=== PATIENT | male | born 1980 | race Caucasian/White ===

== ENCOUNTER 2023-01-28 14:50 | Emergency (ER) | payer OTHER, SELFPAY ==
[2023-01-28 15:00] VITALS: BP 147/83; PULSE 75; RESP 16; TEMP 36.8; O2SAT 98; BMI 30.7
--- NOTE | 2023-01-28 15:18 | ED.LOWEXI1 ---
Documented by User: Edith Lara 01/28/23 18:25 HPI - Extremity Injury (Lower) General Chief Complaint: Extremity Injury, Lower Stated Complaint: LOWER EXTREMITY INJURY LEFT FOOT Time Seen by Provider: 01/28/23 15:06 Source: patient and family Mode of arrival: walk-in Limitations: physical limitation Limitations comment: L foot History of Present Illness HPI Narrative: 42 year old male presents to the ED for left foot pain s/p injury 01/25/23. He accidentally stepped on a board that had nails sticking out of it. Two nails went into his foot. He was wearing Crocs at the time. He has since developed increased pain and swelling. He had an x-ray today at an urgent care that showed no FB or fracture. He reports limited ROM to his toes, foot due to the pain. His tetanus status was updated at the urgent care. He was sent to the ED for evaluation. Rates his pain 9/10 at this time. Related Data Home Medications Medication Instructions Recorded Confirmed clindamycin HCl 300 mg capsule 300 mg PO Q12H 01/28/23 01/28/23 Previous Rx's Medication Instructions Recorded amoxicillin 875 mg-potassium 1 tab PO Q12H 10 days #20 tabs 01/28/23 clavulanate 125 mg tablet ciprofloxacin HCl 500 mg tablet 500 mg PO BID 10 days #20 tabs 01/28/23 (Cipro) Allergies Allergy/AdvReac Type Severity Reaction Status Date / Time No Known Drug Allergies Allergy Verified 01/28/23 15:00 Review of Systems ROS Constitutional Denies: fever or chills Cardiovascular Denies: chest pain Respiratory Denies: shortness of breath Musculoskeletal Reports: extremity pain and extremity swelling Integumentary/Breast Reports: skin tenderness and skin swelling; Denies: rash or redness PFSH PFSH Social History Smoking status: Former smoker Exam Constitutional Vital Signs, click to edit/add: Last Vital Signs Temp 98.2 F 01/28/23 15:00 Pulse 75 01/28/23 15:00 Resp 16 01/28/23 15:00 BP 147/83 H 01/28/23 15:00 Pulse Ox 98 01/28/23 15:00 O2 Del Method Room Air 01/28/23 15:00 Common normals: no apparent distress and oriented x3 General appearance: cooperative; not ill appearing Neck & C-Spine Common normals: supple Chest Chest: symmetrical chest wall rise Respiratory Common normals: normal respiratory effort Effort & inspection: able to speak in complete sentences and symmetric chest movement Cardio Peripheral pulses: posterior tibial pulses present and dorsalis pedis pulses present Extremity Left lower extremity: foot and digits Left foot and digits: inspection (Swelling left foot. Two puncture wounds noted to ball of foot; no drainage.), palpation (Tenderness to ball of left foot.), ROM (Decreased flexion of foot, decreased ROM to toes of left foot.), neurovascular exam (Distal sensation intact.) and other (Mild erythema to left foot.) Neuro Common normals: oriented x3 Sensorium/orientation: awake and alert Course Vital Signs Vital signs: Vital Signs Temperature 98.2 F 01/28/23 15:00 Pulse Rate 75 01/28/23 15:00 Respiratory Rate 16 01/28/23 15:00 Blood Pressure 147/83 H 01/28/23 15:00 Pulse Oximetry 98 01/28/23 15:00 Oxygen Delivery Method Room Air 01/28/23 15:00 Temperature 98.2 F 01/28/23 15:00 Pulse Rate 75 01/28/23 15:00 Respiratory Rate 16 01/28/23 15:00 Blood Pressure 147/83 H 01/28/23 15:00 Pulse Oximetry 98 01/28/23 15:00 Oxygen Delivery Method Room Air 01/28/23 15:00 MDM - Extremity Injury (Lower) MDM Narrative Medical decision making narrative: The patient reported he had an unremarkable x-ray at urgent care today with no evidence of fracture or FB. WBC count was 10.6 here in the ED today. He was given a dose of IV antibiotics here in the ED. Dr. Landa spoke with Dr. Sarkar. The patient is to follow up with Dr. Sarkar tomorrow morning; he was advised to call at 8am for an appointment time. He is to be NPO after midnight tonight in the event he has a procedure tomorrow. He was advised to stop the clindamycin at the recommendation of Dr. Sarkar. Prescriptions were provided for Augmentin and Cipro. A bulky dressing and post-op shoe were applied. The application was checked and was appropriate; the LLE remained NVI. He declined crutches as he has a pair. He is aware he is to be nonweightbearing with the LLE. Return precautions were discussed. Lab Data Attestation: I reviewed the patient's lab results. Discharge Plan Discharge Chief Complaint: Extremity Injury, Lower Clinical Impression: Puncture wound, Injury of foot, left Patient Disposition: Home, Self-Care Time of Disposition Decision: 17:30 Condition: Good Mode of Transportation: Private Vehicle Prescriptions / Home Meds: New ciprofloxacin HCl [Cipro] 500 mg tablet 500 mg PO BID 10 Days Qty: 20 0RF amoxicillin-pot clavulanate 875-125 mg tablet 1 tab PO Q12H 10 Days Qty: 20 0RF No Action clindamycin HCl 300 mg capsule 300 mg PO Q12H Instructions: Crutch Instructions (ED), Cellulitis (ED) Additional Instructions: Do not eat or drink anything after midnight; they may schedule you for a procedure tomorrow. Call Dr. Sarkar's office at 8 am tomorrow morning for an appointment time. Do not bear weight on the left leg; use the crutches as indicated. Stop taking the Clindamycin; start taking the Cipro and Augmentin as directed. Stand Alone Forms: Portal Instructions Referrals: Bridger Baptiste MD [Primary Care Provider] - 1 week Ran Sarkar DPM [Physician] - 01/29/23 (Call the office at 8am for follow up) Discharge Date/Time: 01/28/23 18:02 Documented by User: Yokasta Landa MD 01/28/23 18:51 HPI - Extremity Injury (Lower) General Chief Complaint: Extremity Injury, Lower Stated Complaint: LOWER EXTREMITY INJURY LEFT FOOT Time Seen by Provider: 01/28/23 15:06 Related Data Home Medications Medication Instructions Recorded Confirmed clindamycin HCl 300 mg capsule 300 mg PO Q12H 01/28/23 01/28/23 Previous Rx's Medication Instructions Recorded amoxicillin 875 mg-potassium 1 tab PO Q12H 10 days #20 tabs 01/28/23 clavulanate 125 mg tablet ciprofloxacin HCl 500 mg tablet 500 mg PO BID 10 days #20 tabs 01/28/23 (Cipro) Allergies Allergy/AdvReac Type Severity Reaction Status Date / Time No Known Drug Allergies Allergy Verified 01/28/23 15:00 [facility] Social History Smoking status: Former smoker Exam Constitutional Vital Signs, click to edit/add: Last Vital Signs Temp 98.2 F 01/28/23 15:00 Pulse 75 01/28/23 15:00 Resp 16 01/28/23 15:00 BP 147/83 H 01/28/23 15:00 Pulse Ox 98 01/28/23 15:00 O2 Del Method Room Air 01/28/23 15:00 Course Vital Signs Vital signs: Vital Signs Temperature 98.2 F 01/28/23 15:00 Pulse Rate 75 01/28/23 15:00 Respiratory Rate 16 01/28/23 15:00 Blood Pressure 147/83 H 01/28/23 15:00 Pulse Oximetry 98 01/28/23 15:00 Oxygen Delivery Method Room Air 01/28/23 15:00 Temperature 98.2 F 01/28/23 15:00 Pulse Rate 75 01/28/23 15:00 Respiratory Rate 16 01/28/23 15:00 Blood Pressure 147/83 H 01/28/23 15:00 Pulse Oximetry 98 01/28/23 15:00 Oxygen Delivery Method Room Air 01/28/23 15:00 MDM - Extremity Injury (Lower) MDM Narrative Medical decision making narrative: The patient reported he had an unremarkable x-ray at urgent care today with no evidence of fracture or FB. WBC count was 10.6 here in the ED today. He was given a dose of IV antibiotics here in the ED. Dr. Landa spoke with Dr. Sarkar. The patient is to follow up with Dr. Sarkar tomorrow morning; he was advised to call at 8am for an appointment time. He is to be NPO after midnight tonight in the event he has a procedure tomorrow. He was advised to stop the clindamycin at the recommendation of Dr. Sarkar. Prescriptions were provided for Augmentin and Cipro. A bulky dressing and post-op shoe were applied. The application was checked and was appropriate; the LLE remained NVI. He declined crutches as he has a pair. He is aware he is to be nonweightbearing with the LLE. Return precautions were discussed. Attending physician attestation I have reviewed the mid-level documentation, agree with the documentation, medical decision making and treatment plan as outlined by the mid-level provider. Discharge Plan Discharge Chief Complaint: Extremity Injury, Lower Clinical Impression: Puncture wound, Injury of foot, left Patient Disposition: Home, Self-Care Time of Disposition Decision: 17:30 Condition: Good Mode of Transportation: Private Vehicle Prescriptions / Home Meds: New ciprofloxacin HCl [Cipro] 500 mg tablet 500 mg PO BID 10 Days Qty: 20 0RF amoxicillin-pot clavulanate 875-125 mg tablet 1 tab PO Q12H 10 Days Qty: 20 0RF No Action clindamycin HCl 300 mg capsule 300 mg PO Q12H Instructions: Crutch Instructions (ED), Cellulitis (ED) Additional Instructions: Do not eat or drink anything after midnight; they may schedule you for a procedure tomorrow. Call Dr. Sarkar's office at 8 am tomorrow morning for an appointment time. Do not bear weight on the left leg; use the crutches as indicated. Stop taking the Clindamycin; start taking the Cipro and Augmentin as directed. Stand Alone Forms: Portal Instructions Referrals: Bridger Baptiste MD [Primary Care Provider] - 1 week Ran Sarkar DPM [Physician] - 01/29/23 (Call the office at 8am for follow up) Discharge Date/Time: 01/28/23 18:02
[2023-01-28 15:47] LABS: Basophils Absolute Auto 0.1 10^3/uL (0.0-0.1); Basophils Percent Auto 0.7 % (0.2-2.0); Eosinophils Absolute Auto 0.2 10^3/uL (0.0-0.7); Eosinophils Percent Auto 1.8 % (0.9-7.0); Hematocrit 41.4 % (42.0-54.0); Hemoglobin 14.1 g/dL (14.0-18.0); Immature Granulocytes Abs Auto 0.04 10^3/uL (0.00-0.03); Immature Granulocytes Pct Auto 0.4 % (0.0-0.5); Lymphocytes Percent Auto 19.1 % (20.5-60.0); Mean Corpuscular HGB Conc 34.1 g/dL (29.9-35.2); Mean Corpuscular Hemoglobin 31.3 pg (25.9-34.0); Mean Corpuscular Volume 91.8 fL (80.0-94.0); Mean Platelet Volume 9.9 fL (9.5-13.5); Monocytes Absolute Auto 0.7 10^3/uL (0.3-0.8); Monocytes Percent Auto 6.9 % (1.7-12.0); Neutrophils Absolute Auto 7.6 10^3/uL (1.4-6.5); Neutrophils Percent Auto 71.1 % (43.0-75.0); Platelet Count 218 10^3/uL (150-450); Red Blood Count 4.51 10^6/uL (4.70-6.10); Red Cell Distribution Width 12.8 % (11.0-15.0); White Blood Count 10.6 10^3/uL (4.0-11.0)
[2023-01-28 15:55] LABS: Anion Gap 11.1; BUN Creatinine Ratio 12.6; Calcium 8.4 mg/dL (8.5-10.1); Carbon Dioxide 30.6 mmol/L (21.0-32.0); Chloride 104 mmol/L (98-107); Estimated GFR (African America >60 (>=60); Estimated GFR (Non-African Ame >60 (>=60); Glucose 130 mg/dL (74-106); Potassium 3.7 mmol/L (3.5-5.1); Sodium 142 mmol/L (136-145)
[2023-01-28] MEDS: PIPERACILLIN SODIUM/TAZOBACTAM 4.5 GM in 0.9 % SODIUM CHLORIDE 50 ML IV (17:23)
[2023-01-28 17:28] LABS: Erythrocyte Sedimentation Rate 10 mm/hr (<=15)
[2023-01-28 17:33] VITALS: BP 150/71; PULSE 60; RESP 18; O2SAT 99
[2023-01-28 18:00] VITALS: BP 123/77; PULSE 63; RESP 16; O2SAT 99
== END 2023-01-28 18:02 | disposition home or self-care (01) ==
PROVIDERS: Nurse Practitioner Family; Emergency Provider Emergency Medicine; PCP Family Medicine
DX: S91.332A Puncture wound without foreign body, left foot, initial encounter (principal); W45.0XXA Nail entering through skin, initial encounter; Z87.891 Personal history of nicotine dependence
CPT/HCPCS: 36415; 80048; 85025; 85652; 86140; 96365; 99284

== ENCOUNTER 2023-01-29 10:02 | Outpatient (OUT) | payer OTHER, SELFPAY ==
--- NOTE | 2023-01-29 | XR_ITS ---
The [address] [address] Patient Name: BART EVERETT MRN: [id number] date: 1980 Sex: M Assigned Patient Location: Current Patient Location: Accession/Order Number: [id number] Exam Date: 01/29/2023 10:45 Report Date: 01/29/2023 16:14 At the request of: EULALIO LEWIS Procedure: XR foot LT min 3V PROCEDURE: XR foot LT min 3V HISTORY: LEFT FOOT PAIN , wound, stepped on nail COMPARISON: None. FINDINGS: BONES:No fracture, acute abnormality, or significant arthropathy. SOFT TISSUES:No visible soft tissue swelling. EFFUSION:None visible. OTHER: Negative. XR/XR foot LT min 3V IMPRESSION: 1. No radiopaque foreign body or appreciable bone involvement. Electronically authenticated by: HE HERNANDEZ Date: 01/29/2023 16:14
== END 2023-01-29 10:03 | disposition home or self-care (01) ==
LOC: WC 10:02
PROVIDERS: PCP Family Medicine; Visit Provider Podiatrist Foot & Ankle Surgery
DX: S91.302A Unspecified open wound, left foot, initial encounter (principal); S91.309A Unspecified open wound, unspecified foot, initial encounter
CPT/HCPCS: 73630; G0463

== ENCOUNTER 2023-02-05 08:50 | Outpatient (OUT) | payer OTHER, SELFPAY | END 2023-02-05 08:51 | disposition home or self-care (01) | LOC: WC 08:50 | PROVIDERS: PCP Family Medicine; Visit Provider Podiatrist Foot & Ankle Surgery | DX: S91.309A Unspecified open wound, unspecified foot, initial encounter (principal) | CPT/HCPCS: 97597 ==

== ENCOUNTER 2023-02-19 13:22 | Outpatient (OUT) | payer OTHER, SELFPAY | END 2023-02-19 13:23 | disposition home or self-care (01) | LOC: WC 13:22 | PROVIDERS: PCP Family Medicine; Visit Provider Podiatrist Foot & Ankle Surgery | DX: S91.309A Unspecified open wound, unspecified foot, initial encounter (principal) | CPT/HCPCS: G0463 ==

== ENCOUNTER 2023-09-09 13:21 | Outpatient (OUT) | payer OTHER, SELFPAY ==
--- NOTE | 2023-09-09 13:24 | XR_ITS ---
The [address] [address] Patient Name: BART EVERETT MRN: [id number] date: 1980 Sex: M Assigned Patient Location: [facility] Current Patient Location: Accession/Order Number: [id number] Exam Date: 09/09/2023 13:32 Report Date: 09/10/2023 07:39 At the request of: LES FULLER Procedure: XR lumbar spine 2-3V EXAMINATION: XR lumbar spine 2-3V HISTORY: Lumbar Radiculopathy M54.16 COMPARISON: No relevant comparison available. FINDINGS: BONES: Normal alignment with no acute fracture or spondylolisthesis. Mild degenerative spondylosis. Mild facet osteoarthropathy DISC SPACES: Moderate narrowing with endplate sclerosis and vacuum disc L5-S1 PARASPINOUS: Negative. No paraspinous abnormality is seen. OTHER: Atherosclerosis XR/XR lumbar spine 2-3V IMPRESSION: Moderate degenerative changes L5-S1 Electronically authenticated by: ILEANA MANZO Date: 09/10/2023 07:39
== END 2023-09-09 13:22 | disposition home or self-care (01) ==
LOC: RAD 13:21
PROVIDERS: PCP Family Medicine; Visit Provider Family Medicine
DX: M54.16 Radiculopathy, lumbar region (principal)
CPT/HCPCS: 72100

== ENCOUNTER 2023-09-24 15:27 | Outpatient (OUT) | payer OTHER, SELFPAY ==
--- NOTE | 2023-09-24 | MR_ITS ---
[address] [address] Patient Name: BART EVERETT MRN: [id number] date: 1980 Sex: M Assigned Patient Location: [facility] Current Patient Location: Accession/Order Number: [id number] Exam Date: 09/24/2023 15:45 Report Date: 09/25/2023 07:13 At the request of: LES FULLER Procedure: MR lumbar spine wo con EXAMINATION: MR lumbar spine wo con HISTORY: lumbar radiculopathy COMPARISON: No relevant comparison available. TECHNIQUE: A variety of imaging planes and parameters were utilized for visualization of suspected pathology. FINDINGS: For the purposes of numbering, sagittal T2 image # 7 extends from the T11 vertebral body superiorly to the S2 level inferiorly. PARASPINAL AREA: Normal with no visible mass. BONES: Normal alignment of the lumbar vertebral bodies with no acute fracture or spondylolisthesis. No bone edema. CORD/CAUDA EQUINA: Normal caliber, contour, and signal intensity. DISC LEVELS: 12-L1: No significant disc/facet abnormality, spinal stenosis, or foraminal stenosis. L1-L2: Moderate disc space narrowing and disc desiccation. Minimal posterior disc bulge. No central or foraminal stenosis L2-L3: No significant disc/facet abnormality, spinal stenosis, or foraminal stenosis. L3-L4: No significant disc/facet abnormality, spinal stenosis, or foraminal stenosis. L4-L5: Mild disc space narrowing and disc desiccation. Right base posterior disc herniation the protrusion type extending up to 3.5 mm. This abuts but does not efface the nerves. No central or foraminal stenosis L5-S1: Moderate to severe disc space narrowing and disc desiccation. Posterior central disc/osteophyte complex. No central or foraminal stenosis MR/MR lumbar spine wo con IMPRESSION: Small posterior disc herniation of protrusion type at L4-L5 abutting but not effacing the adjacent nerves Electronically authenticated by: ILEANA MANZO Date: 09/25/2023 07:13
--- NOTE | 2023-09-24 15:34 | XR_ITS ---
The [address] [address] Patient Name: BART EVERETT MRN: [id number] date: 1980 Sex: M Assigned Patient Location: [facility] Current Patient Location: [facility] Accession/Order Number: [id number] Exam Date: 09/24/2023 15:35 Report Date: 09/24/2023 16:04 At the request of: LES FULLER Procedure: XR foreign body eye EXAM: XR foreign body eye HISTORY: foreign body for mri COMPARISON: None. TECHNIQUE: Young' view, lateral x-ray orbits. FINDINGS: No opaque orbital foreign body seen. Sinuses clear. Asymmetric soft tissue density along the inferior right orbital floor. No adjacent bony abnormality. No bony abnormality elsewhere. XR/XR foreign body eye IMPRESSION: Negative for orbital foreign body. Electronically authenticated by: SYDNIE KEBEDE Date: 09/24/2023 16:04
== END 2023-09-24 15:28 | disposition home or self-care (01) ==
LOC: RAD 15:28
PROVIDERS: PCP Family Medicine; Visit Provider Family Medicine
DX: M54.16 Radiculopathy, lumbar region (principal); M51.26 Other intervertebral disc displacement, lumbar region
CPT/HCPCS: 70030; 72148

== ENCOUNTER 2025-06-04 07:26 | Outpatient (OUT) | payer OTHER, SELFPAY ==
--- OUTSIDE RECORDS SUMMARY | 2025-05-31 12:00 | XMS_ITS ---
Author Organization The [facility] [place] Address [address] [address] Care Team Providers Care Robot Programmer Name Role Phone BABATUNDE BAPTISTE MD Primary Care Provider Babatunde Baptiste Unavailable [phone] Allergies No Known Allergies REASON FOR VISIT prostate exam, patient would like to discuss viagra Medications Medication SIG (Take, Route, Frequency, Duration) Notes Start Date End Date Status Diclofenac Sodium 75 MG 1 tablet as needed Orall y Twice a day 09/09/2023ctiveTadalafil 20 MG1 tablet as needed Orally Q 3 days max05/31/2025 Active Social History Tobacco Use: Social History Observation Description Date Details (start date - stop date) Former Smoker 06/17/1995 - 06/17/2022 Tobacco Use/Smoking Question Answer Notes Patient is a former smoker When did you start smoking?06/17/1995When did you stop smoking?06/17/2022How long has it been since you last smoked?1-5 yearsAdditional Findings: Tobacco Zzz-WcrdBs-iupqgims cigarette smoker (10-19/day)AUDIT-C (Standard) Question Answer Notes Did you have a drink containing alcohol in the p ast year? Yes How often did you have a drink containing alcohol in the past year?Monthly or less (1 point)How many drinks did you have on a typical day when you were drinking in the past year?1 or 2 drinks (0 point)How often did you have six or more drinks on one occasion in the past year?4 or more times a week (4 points) Loyrsq2OhzsztvbqcpfjvNljntsgr Problems Problem Type SNOMED Code ICD Code Onset Dates Problem Status W/U Status Risk Notes Problem Well adult (676522473) Well adult (Z00.00 ) Activeconfirmed Vital Signs Weight 220 lbs 05/31/2025 Height 71 in 05/31/2025 Blood pressure systolic 128 mm Hg 05/31/20 25 Blood pressure diastolic 78 mm Hg 025 BMI 30.68 kg/m2 05/31/2025 Encounters Encounter Location Date Provider Diagnosis [facility] [address] [place] [address] 05/31/2025 Babatunde Baptiste Well adult Z00.00 an d Tennis elbow M77.10 Assessments Encounter Date Diagnosis (ICD Code) Assessment Notes Treatment Notes Treatment Clinical Notes Section Notes 05/31/2025 Well adult (ICD-10 - Z00.00) 05/31/2025Tennis elbow (ICD-10 - M77.10) Plan Of Treatment Medication Medication Name Sig Start Date Stop Date Notes Tadalafil 20 MG 1 tablet as needed Orally Q 3 days max 05/31/2025 Pending Test Test Name Order Date HEMOGLOBIN A1C (GLYCO) 05/31/2025 INSULIN, TOTAL 05/31/2025 LIPID PANEL (CHOL/TRIG/HDL/LDL) 05/31/20 25 STOOL OCCULT BLOOD 05/31/2025 THYROID PANEL (T4/TSH/FREE T3) PSA, SCREENING 05/31/2025 CMP (COMP MET NOGUERA) w/eGFR CKD-EPI 2024 CBC WITH DIFF 05/31/2025 Progress Notes * Erick GEE RDOB:1980 (44 yo M)Acc No.[id number]:05/31/2025 Progress Note Patient: Erick LOCKWOOD :?Bridger Baptiste ([facility]), MDDOB:1980???Age: 44 Y???Sex:MaleDate:05/31/2025Phone:[phone]:[address] [place], [place] [id number]:Maria Teresa NUNES In:04:24 PM ESTCheck Out:05:52 PM EST Subjective: * Chief Complaints: * P rostate examPatient would like to discuss viagra * ROS: ???EENT:?hearing changes?denies.?visual changes?denies. non-healing mouth sores?denies.?swollen glands or neck lumps?denies.?hoarseness?denies.?sore throat?denies.?difficulty swallowing?denies.?nose bleeds?denies.?nasal congestion?denies.?ear ache?denies.?ear discharge denies.?ringing in ears?denies.?light sensitivity?denies.?eye pain?denies.?blurring?denies.?eye irritation?denies.?double vision?denies. vision loss?denies.?General/Constitutional:?Sweats:?Denies.?Fatigue?denies.?Sleep proble ms?denies.?Anorexia?denies.?Malaise?denies.?Weight loss?denies. Fatigue or Weakness?denies.?Fever or Chills?denies.?Cardiovascular:?Shortness of Breath w/lying flat?denies.?Lightheadedne ss/dizziness?denies.?Chest tightness/ heavy pressure?denies.?Swelling of legs, a nkles, or feet?denies.?Waking up with shortness of breath?denies.?Chest pain&#16 0;denies.?Palpitations?denies.?Weight gain?denies.?Respiratory:?Chronic or frequent cough?denies.?Coughing up blood&#1 60;denies.?Difficulty breathing?denies.?Productive cough?denies.?Snoring&#1 60;denies.?Shortness of breath that awakens from sleep (PND)?denies.?Chest pain? denies.?Sputum production?denies.?Wheezing?denies.?Musculoskeletal:?Joint pain?denies.?Joint Fluid?denies.?Backpain?denies.?Knee pain?denies.?Neck pain?denies.?Joint Stiffness?denies.?Muscle cramps?denies.?Weakness of muscles?denies.?Arthritis?denies.?Muscle aches?denies.?Pain in shoulder(s)?denies.?Swollen joints?denies.? * Active Problem List N52.9 Impotence Modified On:09/09/2023/U Status:ojaovihhwU68.309AOpen wound of foot Modified On:03/15/2023/U Status:tthjlfyrxT81.90Cellulitis Modified On:08/22/2023/U Status:pseimzatkF17.16Lumbar radiculopathy Modified On:09/26/2023/U Status:sxidkjolvV73.816Spondylosis without myelopathy or radiculopathy, lumbar region Modified On:09/10/2023/U Status:hhewpnhwvG58.00Well adult Modified On:05/31/2025U Status:confirmed * Medical History: * Surgical History: A PPENDECTOMY TONSILLECTOMY,UNDER 12YRS ADENOIDECTOMY,UNDER 12YRS Right Foot- toe surgery * Hospitalization/Major Diagno stic Procedure: s ee above * Family History: F ather: . M other: . B gaby(s): . S on(s): alive, Stomach issues. 1 brother(s) . 2 son(s) - healthy. . * Social History: ???Tobacco Use:?Tobacco Use/Smoking?Patient is a?former smoker ?When did you start smoking??06/17/1995 ?When did you stop smoking??06/17/2022 ?How long has it been since you last smoked? 1-5 years ?Additional Findings: Tobacco Non-User?Ex-moderate cigarette smoker (10-19/day) ???Drug/Alcohol:?AUDIT-C (Standard)?Did you have a drink containing alcohol in the past year??Yes ?How often did you have a drink containing alcohol in the past year?? Monthly or less (1 point) ?How many drinks did you have on a typical daywhen you were drinking in the past year??1 or 2 drinks (0 point) ?How often did you have six or more drinks on one occasion in the past year??4 or more times a week (4 points) ?Points?5 ?Interpretation?Positive * Medications: T akingDiclofenac Sodium 75 MG Tablet Delayed Release 1 tablet as needed Orally Twice a day Medication List reviewed and reconciled with the patientTaking Diclofenac Sodium 75 MG Tablet Delayed Release 1 tablet as needed Orally Twice a day Medication List reviewed and reconciled with the patient * Allergies: N .K.D.A.no[Allergies Verified] Objective: * Vitals: W t:220lbs, Ht: 71 in, BP:128/78mm Hg, BMI:30.68Index, Ht-cm: 180.34 cm, Wt-k.79 kg. * Examination: ???Physical Exam: ?GENERAL:?well developed, well nourished, in no acute distress.?HEAD:?normocephalic/atraumatic.?EYES:?pupils equal, round and reactive to light, conjunctivae and sclerae normal.?EARS:?no deformity or lesion of external ear, canals and TM appear normal bilaterally, TM's intact, not inflamed with normal light reflex, hearing grossly normal to conversational speech.?NOSE:?no deformity, discharge, inflammation, or lesions. ?MOUTH:?mucous membranes moist, normal oropharynx and posterior pharynx without lesions or exudates, tongue normal, dentition normal.?NECK:?neck supple, no masses or palpable cervical nodes, trachea midline, thyroid without nodules, masses, tenderness, or enlargement.?CHEST:?no chest wall deformity, no chest wall tenderness. ?LUNGS:?normal respiratory effort and clear to auscultation, no wheezes, rales, or rhonchi, good air exchange.?CARDIO:?regular rate and rhythm, normal S1 and S2, nor murmur, rub, or gallop.?PULSES:?normal capillary refill.?ABDOMEN:?soft, non-distended, non-tender, no masses.?MUSCULOSKELETAL:?no deformity or scoliosis noted, normal range of motion, joints normal, no erythema, edema, effusion, or ecchymosis.?EXTREMITY:?no clubbing, cyanosis, edema, or deformity withnormal ROM in both upper and lower bilateral extremities.?NEUROLOGIC:?grossly normal.?SKIN:?no rashes, ulcerations, or suspicious lesions.?LYMPH NODES:?no cervical adenopathy, nodes normal.?MENTAL STATUS:?alert and oriented x3, normal mood and affect.? Assessment: * Assessment: 1.?Well adult - Z00.00 (Primary)???2.?Tennis elbow - M77.10?? Plan: * Treatment: Start Tadalafil Tablet, 20 MG, 1 tablet as needed, Orally, Q 3 days max, 10, Refills 11.?LAB: HEMOGLOBIN A1C (GLYCO) ?LAB: INSULIN, TOTAL ?LAB: LIPID PANEL (CHOL/TRIG/HDL/LDL) ?LAB: STOOL OCCULT BLOOD ?LAB: THYROID PANEL (T4/TSH/FREE T3) ?LAB: PSA, SCREENING ?LAB: CMP (COMP MET NOGUERA) w/eGFR CKD-EPI ?LAB: CBC WITH DIFF * Procedure Codes: * Preventive Medicine: ??Screenings/Counseling:?BMI ACTION PLAN?Above Normal BMI Follow-up?Dietary management education, guidance, and counseling * * Sign off status: CompletedVisit Status:?CHK (Check Out) true * Provider: Migdalia [facility])MD Date: 1 08/01/2024 Generated for Printing/Faxing/eTransmitting on:?06/04/2025 07:29 AM EST History and Physical Notes * Examination CategorySub-CategoryDetailNotesCategory NotesPhysical ExamGENERAL:well developed, well nourished, in no acute distressHEAD:normocephalic/atraumatic EYES:pupils equal, round and reactive to light, conjunctivae and sclerae normal EARS:no deformity or lesion of external ear, canals and TM appear normal bilaterally, TM's intact, not inflamed with normal light reflex, hearing grossly normal to conversational speechNOSE:no deformity, discharge, inflammation, or lesionsMOUTH:mucous membranes moist, normal oropharynx and posterior pharynx without lesions or exudates, tonguenormal, dentition normalNECK:neck supple, no masses or palpable cervical nodes, trachea midline, thyroid without nodules, masses, tenderness, or enlargementCHEST:no chest wall deformity, no chest wall tendernessLUNGS:normal respiratory effort and clear to auscultation, no wheezes, rales, or rhonchi, good air exchangeCARDIO:regular rate and rhythm, normal S1 and S2, nor murmur, rub, or gallopPULSES:normal capillary refillABDOMEN:soft, non-distended, non-tender, no massesRECTAL:MUSCULOSKELETAL:no deformity or scoliosis noted, normal range of motion, joints normal, no erythema, edema, effusion, or ecchymosisEXTREMITY:no clubbing, cyanosis, edema, or deformity with normal ROM in both upper and lower bilateral extremitiesNEUROLOGIC:grossly normalSKIN:no rashes, ulcerations, or suspicious lesionsLYMPH NODES:no cervical adenopathy, nodes normalMENTAL STATUS:alert and oriented x3, normal mood and affect
--- OUTSIDE RECORDS SUMMARY | 2025-06-04 07:29 | XMS_ITS | Patient Health Record ---
Author Organization The [facility] in [place] Address [address] [place] [address] Care Team Providers Care Family Health Nurse Practitioner Name Role Phone BABATUNDE BAPTISTE MD Primary Care Provider Babatunde Baptiste Unavailable [phone] Allergies No Known Allergies Reason For Referral No Information Medications Medication SIG (Take, Route, Frequency, Duration) [...] since you last smoked?1-5 yearsAdditional Findings: Tobacco Bpb-JwbfPm-qyogvyzv cigarette smoker (10-19/day)AUDIT-C (Standard) Question Answer Notes [...] or more times a week (4 points) Tpfoso3ExrrozahysamaoBeaubktq Problems Problem Type SNOMED Code ICD Code Onset Dates Problem Status W/U Status Risk Notes Problem Lumbosacral spondylo sis without myelopathy (50319048) Spondylosis without myelopathy or radiculopathy, lumbar region (M47.816) ActiveconfirmedProblemLumbar radiculopathy (593859425)Lumbar radiculopathy (M54.16)ActiveconfirmedProblemWell adult (952638154)Well adult (Z00.00)Active confirmedProblemCellulitis (382355749)Cellulitis (L03.90)ActiveconfirmedProblem Erectile dysfunction (disorder) (212539617)Impotence (N52.9)Activeconfirmed ProblemOpen wound of foot (638529379)Open wound of foot (S91.309A)Active confirmed Vital Signs Blood pressure diastolic 78 mm Hg 05/31/2025 Xelgut73 in05/31/2025lood pressure hhlulnfs342 mm Hg05/31/20252260Ewnyqw134 lbs 05/31/2025BMI30.68 kg/m205/31/2025 Encounters Encounter Location Date Provider Diagnosis [facility] [address] [place] [address] 05/31/2025 Babatunde Baptiste Well adult Z00.00 an d Tennis elbow M77.10 Assessments Encounter Date Diagnosis (ICD Code) Assessment Notes Treatment Notes Treatment Clinical Notes Section Notes 05/31/2025 Well adult (ICD-10 - Z00.00) 05/31/2025Tennis elbow (ICD-10 - M77.10) Plan Of Treatment Pending Test Test Name Order Date HEMOGLOBIN A1C (GLYCO) 05/31/2025 INSULIN, TOTAL 05/31/2025 LIPID PANEL (CHOL/TRIG/HDL/LDL) 05/31/20 25 STOOL OCCULT BLOOD 05/31/2025 MRI LSPINE WO CON 09/09/2023 XR LSPINE 2_3 VIEWS 09/09/2023 THYROID PANEL (T4/TSH/FREE T3) PSA, SCREENING 05/31/2025 CMP (COMP MET NOGUERA) w/eGFR CKD-EPI 2024 CBC WITH DIFF 05/31/2025 Insurance Providers Payer Name Payer Address Payer Phone Subscriber Number Group Number Insured Name Patient Relationship to Insured Coverage Start Date Coverage End Date [employer] [address] [address] [place] [address] [id number] Gemma Geeelf - patient is the insured Medications Administered Medication Instructions Date of Administration Dosage Notes Kenalog-40 je295Agkfqwh-8816/26/2024120 mgKetorolac Tynfbgenrfnz33/25/202460 bf72Hfadbmmya Blbkmejpajwa56/26/202460 mgOrphenadrine Bqjegrt04 mg60 Orphenadrine Esqzsbo46 mg Medical (General) History Medical History History ICD Code Breast buds E30.1 COVID-19 U07.1 De Quervain's syndrome (tenosynovitis) M 65.4 Depression F32.A Insomnia G47.00 Impotence N52.9 Surgical History Surgery Date(Month/Year) APPENDECTOMY TONSILLECTOMY,UNDER 12YRSADENOIDECTOMY,UNDER 12YRSRight Foot- toe surgery Hospitalization History Reason Date(Month/Year) see above
[2025-06-04 07:49] LABS: Hematocrit 42.1 % (42.0-54.0); Hemoglobin 14.4 g/dL (14.0-18.0); Immature Granulocytes Abs Auto 0.03 10^3/uL (0.00-0.03); Immature Granulocytes Pct Auto 0.4 % (0.0-0.5); Lymphocytes Absolute Auto 2.8 10^3/uL (1.2-3.8); Mean Corpuscular HGB Conc 34.2 g/dL (29.9-35.2); Mean Corpuscular Hemoglobin 31.3 pg (25.9-34.0); Mean Corpuscular Volume 91.5 fL (80.0-94.0); Platelet Count 227 10^3/uL (150-450); Red Blood Count 4.60 10^6/uL (4.70-6.10); White Blood Count 8.5 10^3/uL (4.0-11.0)
[2025-06-04 09:20] LABS: Alanine Aminotransferase 39 U/L (16-63); Albumin Globulin Ratio 1.4; Albumin Level 4.2 g/dL (3.4-5.0); Alkaline Phosphatase 63 U/L (46-116); Anion Gap 12.5; Aspartate Amino Transferase 25 U/L (15-37); Blood Urea Nitrogen 12.0 mg/dL (7.0-18.0); Calcium 8.6 mg/dL (8.5-10.1); Carbon Dioxide 29.0 mmol/L (21.0-32.0); Chloride 103 mmol/L (98-107); Cholesterol 177 mg/dL (<=200); Estimated GFR (African America >60 (>=60 mL/min/1.73m^2); Estimated GFR (Non-African Ame >60 (>=60 mL/min/1.73m^2); Free T3 3.14 pg/mL (2.18-3.98); Globulin 2.9 g/dL; Glucose 92 mg/dL (74-106); HDL Cholesterol 59 mg/dL (40-60); Potassium 3.5 mmol/L (3.5-5.1); Sodium 141 mmol/L (136-145); Thyroid Stimulating Hormone 0.943 uIU/mL (0.358-3.740); Total Protein 7.1 g/dL (6.4-8.2); Triglycerides 32 mg/dL (<=150); VLDL CHOLESTEROL 6.4 mg/dL
== END 2025-06-04 07:27 | disposition home or self-care (01) ==
LOC: LAB 07:27
PROVIDERS: PCP Family Medicine; Visit Provider Family Medicine
DX: Z00.00 Encounter for general adult medical examination without abnormal findings (principal); Z12.5 Encounter for screening for malignant neoplasm of prostate
CPT/HCPCS: 36415; 80053; 80061; 83036; 83525; 84436; 84443; 84481; 85025; G0103

== ENCOUNTER 2025-06-05 11:23 | Outpatient (REF) | payer OTHER, SELFPAY ==
--- OUTSIDE RECORDS SUMMARY | 2025-05-31 12:00 | XMS_ITS ---
Author Organization The [facility] in [place] Address [address] [place] [address] Care Team Providers Care Mgmt Specialist Name Role Phone BABATUNDE BAPTISTE MD Primary Care Provider Babatunde Baptiste Unavailable [phone] Allergies No Known Allergies REASON FOR VISIT [...] since you last smoked?1-5 yearsAdditional Findings: Tobacco Qyv-NhvnXs-zcxjsmte cigarette smoker (10-19/day)AUDIT-C (Standard) Question Answer Notes [...] or more times a week (4 points) Bpakyv3DwrszaysnulamrBdawfjwq Problems Problem Type SNOMED Code ICD Code Onset Dates Problem Status W/U Status Risk Notes Problem Well adult (564348204) Well adult (Z00.00 ) Activeconfirmed Vital Signs Weight 220 lbs 05/31/2025 Height 71 in 05/31/2025 Blood pressure systolic 128 mm Hg 05/31/20 25 Blood pressure diastolic 78 mm Hg 025 BMI 30.68 kg/m2 05/31/2025 Encounters Encounter Location Date Provider Diagnosis [facility] [address] [place] [address] 05/31/2025 Babatunde Baptiste Well adult Z00.00 an [...] * Erick GEE RDOB:1980 (44 yo M)Acc No.[id number]:05/31/2025 Progress Note Patient: Erick LOCKWOOD :?Bridger Baptiste ([facility]), MDDOB:1980???Age: 44 Y???Sex:MaleDate:05/31/2025Phone:[phone]:[address] [place], [place] [id number]:Maria Teresa NUNES In:04:24 PM ESTCheck Out:05:52 PM [...] Active Problem List N52.9 Impotence Modified On:09/09/2023/U Status:zvobiwnhwT43.309AOpen wound of foot Modified On:03/15/2023/U Status:shttforvdU18.90Cellulitis Modified On:08/22/2023/U Status:jctrgzcnlV10.16Lumbar radiculopathy Modified On:09/26/2023/U Status:egwdpcrxrM25.816Spondylosis without myelopathy or radiculopathy, lumbar region Modified On:09/10/2023/U Status:gxwznyswdA91.00Well adult Modified On:05/31/2025U Status:confirmed * Medical History: [...] Status:?CHK (Check Out) true * [facility]MD Date: 1 08/01/2024 Generated for Printing/Faxing/eTransmitting on:?06/05/2025 11:30 AM EST History and Physical Notes * [...]
--- OUTSIDE RECORDS SUMMARY | 2025-06-04 08:02 | XMS_ITS ---
Author Organization [facility] in [place] Address [address] [place] [address] Care Team Providers Care Restaurant Management Internship Name Role Phone BABATUNDE FULLER MD Primary Care Provider [phone] Babatunde Fuller Unavailable [phone] REASON FOR VISIT lab results Encounters Encounter Location Date Provider Diagnosis [facility] [address] [place] [address] 06/04/2025 Babatunde Fuller Plan Of Treatment No Information Progress Notes * Erick GEE RDOB:1980 (44 yo M)Acc No.[id number]:06/04/2025 Patient:?Erick GEE :1980???Age:44 Y???Sex:MalePhone:[phone] Address:[address] [place], [place] [address] Subjective: * Chief Complaints: * L ab results * Medical History: * Surgical History: * Hospitalization/Major Diagno stic Procedure: * Medications: Objective: * Vitals: * Physical Examination: ??? Assessment: Plan: * Treatment: * Procedure Codes: * true * Date:?Generated for Printing/Faxing/eTransmitting on:?06/05/2025 11:30 AM EST
--- OUTSIDE RECORDS SUMMARY | 2025-06-05 11:30 | XMS_ITS | Patient Health Record ---
Author Organization The [facility] in [place] Address [address] [place] [address] Care Team Providers Care [employer] Safety Program Coordinator Name Role Phone BABATUNDE BATPISTE MD Primary Care Provider Babatunde Baptiste Unavailable [phone] Allergies No Known Allergies Results Component Value Reference Range Notes INSULIN (Not yet reviewed by provider) Interpretation: Performing Lab: Notes/Report: [facility] , Insulin 4.4 2.6-24.9 uIU/mL Performed at: - [facility] [address] [id number] Continuous Mining Machine Operator: Haja Benjamin PhD, Phone: [phone] Performing Lab: see note - [facility] LBCBC AUTO DIFF Reviewed date:06/04/2025 01:02:40 PM Interpretation: Performing Lab: Notes/Report: [facility] ,White Blood Count8.54.0-11.0 10 3/uLRed Blood Count4.604.70-6.10 10 6/uL Hzofvuvjsn66.414.0-18.0 g/yKCltnnnnlaq35.142.0-54.0 %Mean Corpuscular Pmynqc12.5 80.0-94.0 fLMean Corpuscular Abhstwhaqy94.325.9-34.0 pgMean Corpuscular HGB Conc 34.229.9-35.2 g/dLRed Cell Distribution Width12.711.0-15.0 %Platelet Ptwcr009 150-450 10 3/uLMean Platelet Volume9.89.5-13.5 fLNeutrophils Percent Auto52.4 43.0-75.0 %Lymphocytes Percent Auto33.620.5-60.0 %Monocytes Percent Auto6.41.7- 12.0 %Eosinophils Percent Auto6.00.9-7.0 %Basophils Percent Auto1.20.2-2.0 % Immature Granulocytes Pct Auto0.40.0-0.5 %Neutrophils Absolute Auto4.41.4-6.5 10 3/uLLymphocytes Absolute Auto2.81.2-3.8 10 3/uLMonocytes Absolute Auto0.50.3-0.8 10 3/uLEosinophils Absolute Auto0.50.0-0.7 10 3/uLBasophils Absolute Auto0.10.0- 0.1 10 3/uLImmature Granulocytes Abs Auto0.030.00-0.03 10 3/uLPerforming Lab:see noteML - [facility] LBFREE T3 Reviewed date:06/04/2025 01:02:40 PM Interpretation: Performing Lab: Notes/Report: [facility] ,Free T33.142.18-3.98 pg/mLPerforming Lab:see noteML - [facility] LB GLYCOHEMOGLOBIN A1C Reviewed date:06/04/2025 01:02:40 PM Interpretation: Performing Lab: Notes/Report: [facility] ,Glycohemoglobin A1C5.34.5-6.2 % ADA RECOMMENDED LIMIT 4.0 - 6.0 ADA THERAPEUTIC TARGET < 7.0 ACTION SUGGESTED > 7.0 Estimated Average Vhrbrke310Uzpmaguutv Lab:see noteML - [facility] LB LIPID PROFILE Reviewed date:06/04/2025 01:02:40 PM Interpretation: Performing Lab: Notes/Report: [facility] ,Jlxqyyxbgkksu10<=150 mg/qQLzzahsmlunm332<=200 mg/dLHDL Zijsczmkllb0534-29 mg/dL > or =60 mg/dl - LOW CARDIOVASCULAR RISK <40 mg/dl - HIGH CARDIOVASCULAR RISK LDL Cholesterol Qtzbyvfdcs093.6 <100 mg/dl OPTIMAL 100-129 mg/dl NEAR OR ABOVE OPTIMAL 130-159 mg/dl BORDERLINE HIGH 160-189 mg/dl HIGH >190 mg/dl VERY HIGH VLDL CHOLESTEROL6.4Chol HDL Ratio3.0 3.3 - 4.4 LOW RISK 4.4 - 7.1 AVERAGE RISK 7.1 - 11.0 MODERATE RISK >11.0 HIGH RISK Performing Lab:see note - [facility] LBPROF 14(COMP METB) Reviewed date:06/04/2025 01:02:40 PM Interpretation: Performing Lab: Notes/Report: [facility] ,Ngyldu021626-959 mmol/LPotassium3.53.5-5.1 mmol/OTywuchva18020-186 mmol/LCarbon Vtxhxnm17.021.0-32.0 mmol/LAnion Gap12.5Bqovnbx4749-073 mg/dLBlood Urea Nitrogen 12.07.0-18.0 mg/dLCreatinine1.010.70-1.30 mg/dLEstimated GFR ( Anyi>60 >=60 mL/min/1.73m 2Estimated GFR (Non- Smitha>60>=60 mL/min/1.73m 2BUN Creatinine Ratio11.2Fhnyyke8.68.5-10.1 mg/dLBilirubin Total0.90.2-1.0 mg/dL Aspartate Amino Xhtsuglemym1584-04 U/LAlanine Ssgrbrnsbwtroelo7959-74 U/L Alkaline Jiuxjfscwiy6811-287 U/LTotal Protein7.16.4-8.2 g/dLAlbumin Level4.23.4- 5.0 g/dLGlobulin2.9Albumin Globulin Ratio1.4Performing Lab:see note - [facility] LBPSA SCREENING Reviewed date:06/04/2025 01:02:40 PM Interpretation: Performing Lab: Notes/Report: [facility] ,Prostate Specific Antigen Scrn0.93<=4.00 ng/mLPerforming Lab:see note - [facility] LBT4 Reviewed date:06/04/2025 01:02:40 PM Interpretation: Performing Lab: Notes/Report: [facility] ,T4 Zztwosuew75.404.50-12.10 ug/dLPerforming Lab:see note - [facility] LBTSH Reviewed date:06/04/2025 01:02:40 PM Interpretation: Performing Lab: Notes/Report: [facility] ,Thyroid Stimulating Hormone0.9430.358-3.740 uIU/mLPerforming Lab:see noteML - [facility] LB Reason For Referral No Information Medications Medication [...] since you last smoked?1-5 yearsAdditional Findings: Tobacco Cbn-QspnGr-gqbynrqp cigarette smoker (10-19/day)Alcohol Screen (Audit-C) Question Answer Notes Did you have a drink containing alcohol in the p ast year? Yes How often did you have 6 or more drinks on one occasion in the past year?Two to four times a month (2 points)How many drinks did you have on a typical day when you were drinking in the past year?1 or 2 drinks (0 point)How often did you have a drink containing alcohol in the past year?Daily or almost daily (4 points) Hwolpb5HmnciptcokanmbXsthuxhgWEAFN-R (Standard) Question Answer Notes Did you have [...] or more times a week (4 points) Mjvjjt1IxkojrycwrzpmsMbllovsv Problems Problem Type SNOMED Code ICD Code Onset Dates Problem Status W/U Status Risk Notes Problem Lumbosacral spondylo sis without myelopathy (90376366) Spondylosis without myelopathy or radiculopathy, lumbar region (M47.816) ActiveconfirmedProblemLumbar radiculopathy (655389314)Lumbar radiculopathy (M54.16)ActiveconfirmedProblemWell adult (139289664)Well adult (Z00.00)Active confirmedProblemCellulitis (818657955)Cellulitis (L03.90)ActiveconfirmedProblem Erectile dysfunction (disorder) (681429516)Impotence (N52.9)Activeconfirmed ProblemOpen wound of foot (577700449)Open wound of foot (S91.309A)Active confirmed Vital Signs Blood pressure diastolic 78 mm Hg 05/31/2025 Tcvsqx89 in05/31/2025lood pressure tdblwjki049 mm Hg05/31/20258045Ztbmtv983 lbs 05/31/2025BMI30.68 kg/m205/31/2025 Encounters Encounter Location Date Provider Diagnosis [facility] [address] [place] [address] 05/31/2025 Babatunde Baptiste Well adult Z00.00 an d Tennis elbow M77.10 [facility] [address] [place] [address] 06/04/2025 Babatunde Baptiste Assessments Encounter Date Diagnosis (ICD Code) Assessment Notes Treatment Notes Treatment Clinical Notes Section Notes 05/31/2025 Well adult (ICD-10 - Z00.00) 05/31/2025Tennis elbow (ICD-10 - M77.10) Plan Of Treatment Pending Test Test Name Order Date HEMOGLOBIN A1C (GLYCO) 05/31/2025 INSULIN, TOTAL 05/31/2025 LIPID PANEL (CHOL/TRIG/HDL/LDL) 05/31/20 25 STOOL OCCULT BLOOD 05/31/2025 INSULIN 06/04/2025 MRI LSPINE WO CON 09/09/2023 XR LSPINE 2_3 VIEWS 09/09/2023 THYROID PANEL (T4/TSH/FREE T3) PSA, SCREENING 05/31/2025 CMP (COMP MET NOGUERA) w/eGFR CKD-EPI 2024 CBC WITH DIFF 05/31/2025 Insurance Providers Payer Name Payer Address Payer Phone Subscriber Number Group Number Insured Name Patient Relationship to Insured Coverage Start Date Coverage End Date [employer] [address] [address] [place] [address] [id number] Gemma Geeelf - patient is the insured Medications Administered Medication Instructions Date of Administration Dosage Notes Kenalog-40 yd672Pxsjmki-2606/26/2024120 mgKetorolac Qjxneaiiqpif41/25/202460 xe49Vrfjtefos Fiurvaxyieha02/26/202460 mgOrphenadrine Glsoonv96 mg60 Orphenadrine Uatykio09 mg Medical (General) History Medical History History ICD Code Breast buds E30.1 COVID-19 U07.1 De Quervain's syndrome (tenosynovitis) M 65.4 Depression F32.A Insomnia G47.00 Impotence N52.9 Surgical History Surgery Date(Month/Year) Right Foot- toe surgery TONSILLECTOMY,UNDER 12YRSAPPENDECTOMYADENOIDECTOMY,UNDER 12YRSHospitalization History Reason Date(Month/Year) see above
== END 2025-06-05 11:24 | disposition home or self-care (01) ==
LOC: LAB 11:23
PROVIDERS: PCP Family Medicine; Visit Provider Family Medicine
DX: Z00.00 Encounter for general adult medical examination without abnormal findings (principal); Z12.5 Encounter for screening for malignant neoplasm of prostate
CPT/HCPCS: G0328